=== PATIENT | male | born 1995 | race Caucasian/White ===

== ENCOUNTER 2016-12-12 17:45 | Emergency (ER) | payer BC, OTHER ==
[2016-12-12 17:55] VITALS: RESP 16
--- NOTE | 2016-12-12 18:37 | EDPHY ---
H & P Smoking Status: Heavy smoker Time Seen by Provider: 12/12/16 17:57 HPI/ROS: CHIEF COMPLAINT: Delusional, history of bipolar HISTORY OF PRESENT ILLNESS: 21-year-old male history of bipolar presents to the emergency department with history of bipolar with his girlfriend acting delusional. The patient apparently has not slept in 3 days. He told his girlfriend that he was seeing bugs all over his skin. He does not have a history of methamphetamine abuse. He does smoke marijuana. He has been off of his bipolar medication for several months. He had a manic episode back in April and his girlfriend stated that this was very similar presentation. Denies homicidal ideation. He states he denies suicidal ideation although he told his girlfriend that he would like to just end it all. Currently has no physical complaints. REVIEW OF SYSTEMS: Constitutional: No fever, no chills. Eyes: No double or blurry vision. ENT: No sore throat. Respiratory: No cough, no shortness of breath. Cardiac: No chest pain. Gastrointestinal: No abdominal pain, vomiting or diarrhea. Genitourinary: No dysuria. Musculoskeletal: No neck or back pain. Skin: No rashes. Neurological: No headache. (Shereen Levy) Past Medical/Surgical History: Bipolar, marijuana use, history of hypertension stop taking lisinopril on his own. (Shereen Levy) Social History: Single (Shereen Levy) Physical Exam: General Appearance: Alert, no distress. Very flat affect. Poor eye contact. Girlfriend at bedside. Blood pressure 149/106 Eyes: Pupils equal and round. Extraocular motions are all intact. ENT: Mouth: Mucous membranes moist. Respiratory: No wheezing, rhonchi, or rales, lungs are clear to auscultation. Cardiovascular: Regular rate and rhythm. Gastrointestinal: Abdomen is soft and nontender, no masses, no rebound or guarding, bowel sounds normal. Neurological: Alert and oriented x 3, cranial nerves II through XII grossly intact Skin: Warm and dry, no rashes. Musculoskeletal: Nontender to palpate along the cervical, thoracic or lumbar spine. Neck is supple. Extremities: Full range of motion and no peripheral edema. Psychiatric: Patient is oriented X 3, there is no agitation. (Shereen Levy) Constitutional: Initial Vital Signs Temperature (C) 36.4 C 12/12/16 17:50 Heart Rate 103 H 12/12/16 17:50 Respiratory Rate 16 12/12/16 17:50 Blood Pressure 149/106 H 12/12/16 17:50 O2 Sat (%) 98 12/12/16 17:50 O2 Delivery Mode Room Air Allergies/Adverse Reactions: Penicillins Allergy (Verified 11/27/14 18:08) Home Medications: Medication Instructions Recorded Klonopin (RX) 1 mg PO TID PRN 11/27/14 OXcarbazepine [Trileptal 300mg (*)] 300 mg PO DAILY 11/27/14 Amphet Asp and D/Amphet [Adderall 20 mg PO BID@,11/28/14 10 MG (*)] OXcarbazepine [Trileptal 300mg (*)] 900 mg PO HS 11/28/14 Medical Decision Making ED Course/Re-evaluation: 0342AM: This patient has been accepted at [facility]. EMTALA Filled out. Appropriate transfer will be set up. Dr. Campo accepts. (Leighton Fischer) 21-year-old male presents with history of bipolar off medication. The patient has been medically cleared. He has been evaluated by mental health and was placed on an M1 hold and they are looking for inpatient placement for him. (Shereen Levy) Differential Diagnosis: Depression including functional and major depression, situational depression, medication side effect, drugs and alcohol abuse. (Shereen Levy) Care Turn Over: Care will be turned over to Dr. Leighton Fischer for disposition and plan. (Shereen Levy) - Data Points Laboratory Results: Laboratory Results 12/12/16 18:54 12/12/16 18:54 Medications Given: Discontinued Medications Lorazepam (Ativan) 1 mg PO EDNOW ONE Stop: 12/13/16 00:39 Last Admin: 12/13/16 01:09 Dose: 1 mg Departure - Departure Disposition: Other Psych, Not [place] Clinical Impression: Bipolar 1 disorder, Suicidal ideation Condition: Good Referrals: NONE *PRIMARY CARE P,. [Primary Care Provider] - As per Instructions
[2016-12-12 19:06] LABS: % IMMATURE GRANULYOCYTES 0.6 % (0.0-1.1); ABSOLUTE IMMATURE GRANULOCYTES 0.07 10^3/uL (0.00-0.10); ADD DIFF? NO; ADD MORPH? NO; ADD SCAN? NO; ATYPICAL LYMPHOCYTE FLAG 0 (0-99); FRAGMENT RBC FLAG 0 (0-99); HEMATOCRIT 54.1 % (40.0-51.0); HEMOGLOBIN 18.3 g/dL (13.7-17.5); LEFT SHIFT FLG 0 (0-99); LIPEMIA HEMOLYSIS FLAG 90 (0-99); MEAN CELL HEMOGLOBIN 28.3 pg (27.9-34.1); MEAN CELL HEMOGLOBIN CONCENTR. 33.8 g/dL (32.4-36.7); MEAN CELL VOLUME 83.7 fL (81.5-99.8); MEAN PLATELET VOLUME 9.8 fL (8.7-11.7); PLATELET CLUMPS FLAG 10 (0-99); PLATELET COUNT 230 10^3/uL (150-400); RED BLOOD CELL COUNT 6.46 10^6/uL (4.40-6.38); RED CELL DISTRIBUTION WIDTH 13.5 % (11.5-15.2)
[2016-12-12 19:29] LABS: ANION GAP 18 mEq/L (8-16); CALCIUM 10.2 mg/dL (8.5-10.4); CARBON DIOXIDE 19 mEq/l (22-31); CHLORIDE 105 mEq/L (97-110); CREATININE 0.9 mg/dL (0.7-1.3); ETHANOL SERUM < 10 mg/dL (0-10); GLOMERULAR FILTRATION RATE > 60; GLUCOSE 97 mg/dL (70-100); POTASSIUM 3.7 mEq/L (3.5-5.2); SODIUM 142 mEq/L (134-144)
[2016-12-13] MEDS ORDERED: LORazepam 1 MG TAB PO ONE (00:38)
[2016-12-13 06:38] VITALS: BP 134/81; PULSE 76; TEMP 98.1; O2SAT 94
== END 2016-12-13 06:39 ==
DX: F31.9 Bipolar disorder, unspecified (principal); R45.851 Suicidal ideations; I10 Essential (primary) hypertension; F17.200 Nicotine dependence, unspecified, uncomplicated
CPT/HCPCS: 80305; G0480